=== PATIENT | female | born 1965 | race Caucasian/White ===

== ENCOUNTER 2020-08-17 08:14 | Emergency (ER) | payer MEDICAID ==
[2020-08-17] MEDS ORDERED: Sodium Chloride 0.9% 10 ML Syringe FLUSH PRN (08:23)
[2020-08-17] MEDS ORDERED: Alum Hydroxide/Mag Hydroxide 15 ML, Lidocaine 2% 15 ML PO ONE ×2 (08:24)
[2020-08-17] MEDS ORDERED: Sodium Chloride 0.9% 1,000 ML IV SCH (08:30)
[2020-08-17] MEDS ORDERED: Iopamidol 755 Mg/ML 75 ML Bottle IV ONE (09:25)
--- NOTE | 2020-08-17 10:06 | EDM.PDOC ---
ED HPI GENERAL MEDICAL PROBLEM - General Chief Complaint: Abdominal Pain Stated Complaint: UPPER ABD PAIN Time Seen by Provider: 08/17/20 09:00 Source of Information: Reports: Patient History Limitations: Reports: No Limitations - History of Present Illness INITIAL COMMENTS - FREE TEXT/NARRATIVE: Patient presented to the ED because of epigastric pain which started last night,sharp,09/15. There is no N/V/D or urinary symptoms. There is no fever,chills. Upper Abdomen Pain Score (Numeric/FACES): 5 - Related Data Allergies Allergy/AdvReac Type Severity Reaction Status Date / Time Penicillins Allergy Hives Verified 08/17/20 09:29 Home Meds: Home Meds Losartan [Cozaar] 100 mg PO DAILY 08/17/20 [History] Metoprolol Succinate [Toprol Xl] 50 mg PO DAILY 08/17/20 [History] Omeprazole 20 mg PO DAILY #60 capsule. 08/17/20 [Rx] Sulfamethoxazole/Trimethoprim [Bactrim Ds Tablet] 1 each PO BID #6 tablet 08/17/20 [Rx] atorvaSTATin Calcium [Lipitor] 40 mg PO BEDTIME 08/17/20 [History] ED ROS GENERAL - Review of Systems Review Of Systems: See Below Constitutional: Reports: No Symptoms HEENT: Reports: No Symptoms Respiratory: Reports: No Symptoms Cardiovascular: Reports: No Symptoms Endocrine: Reports: No Symptoms GI/Abdominal: Reports: Abdominal Pain : Reports: No Symptoms Musculoskeletal: Reports: No Symptoms Skin: Reports: No Symptoms Neurological: Reports: No Symptoms Psychiatric: Reports: No Symptoms ED EXAM, GI/ABD - Physical Exam Exam: See Below Exam Limited By: No Limitations General Appearance: Alert, No Apparent Distress Ears: Normal External Exam, Normal Canal Nose: Normal Inspection, Normal Mucosa, No Blood Throat/Mouth: Normal Inspection, Normal Lips, Normal Teeth Head: Atraumatic, Normocephalic Neck: Normal Inspection, Supple, Non-Tender, Full Range of Motion Respiratory/Chest: No Respiratory Distress, Lungs Clear, Normal Breath Sounds, No Accessory Muscle Use, Chest Non-Tender Cardiovascular: Normal Peripheral Pulses, Regular Rate, Rhythm, No Edema, No Gallop, No JVD, No Murmur, No Rub GI/Abdominal Exam: Normal Bowel Sounds, Soft, Other (epigastric tenderness) Course - Vital Signs Text/Narrative:: Lab/CT result was reviewed and discussed with patient NS 1 L bolus GI cocktail po x1 with relief of her pain Last Recorded V/S: Last Vital Signs Temp 37.2 C 08/17/20 10:30 Pulse 87 08/17/20 10:30 Resp 18 08/17/20 10:30 BP 176/111 H 08/17/20 10:30 Pulse Ox 98 08/17/20 10:30 - Orders/Labs/Meds Orders: Active Orders 24 hr Category Date Time Status Saline Lock Insert [OM.PC] Routine Oth 08/17/20 08:23 Ordered Labs: Laboratory Tests 08/17/20 08/17/20 08/17/20 Range/Units 08:35 08:35 08:35 WBC 7.3 (3.0-10.3) x10-3/uL RBC 4.17 (3.60-5.20) x10(6)uL Hgb 13.4 (11.4-15.5) g/dL Hct 40.7 (34.2-48.2) % MCV 97.7 (76.7-100.5) fL MCH 32.2 (23.9-33.9) pg MCHC 33.0 (31.9-34.8) g/dL RDW 12.7 (12.3-16.5) % Plt Count 231 (151-488) x10(3)uL MPV 10.5 (7.1-12.4) fL Neut % (Auto) 73.3 (30.8-76.2) % Lymph % (Auto) 16.6 L (18.4-52.1) % [place] % (Auto) 8.7 (4.4-15.7) % Eos % (Auto) 0.9 (0.6-8.1) % Baso % (Auto) 0.5 (0.2-1.5) % Neut # (Auto) 5.3 (1.5-6.3) x10-3/uL Lymph # (Auto) 1.2 (1.0-4.4) x10-3/uL [place] # (Auto) 0.6 (0.3-1.0) x10-3/uL Eos # (Auto) 0.1 (0.0-0.8) x10-3/uL Baso # (Auto) 0.0 (0.0-0.1) x10-3/uL Sodium 140 (135-145) mmol/L Potassium 3.6 (3.5-5.3) mmol/L Chloride 101 (100-110) mmol/L Carbon Dioxide 28 (21-32) mmol/L BUN 13 (7-18) mg/dL Creatinine 1.0 (0.55-1.02) mg/dL Est Cr Clr Drug Dosing TNP Estimated GFR (MDRD) 57 L (>60) BUN/Creatinine Ratio 13.0 (9-20) Glucose 136 H (80-116) mg/dL Calcium 9.9 (8.6-10.2) mg/dL Total Bilirubin 0.8 (0.1-1.3) mg/dL AST 22 (5-25) IU/L ALT 32 (12-36) U/L Alkaline Phosphatase 85 (56-112) IU/L Total Protein 7.9 (6.0-8.0) g/dL Albumin 3.8 (3.5-5.2) g/dL Globulin 4.1 g/dL Albumin/Globulin Ratio 0.9 Amylase 48 (25-115) U/L Lipase 103 (73-393) U/L Urine Color (YELLOW) Urine Appearance (CLEAR) Urine pH (5.0-6.5) Ur Specific [place] (1.010-1.025) Urine Protein (NEGATIVE) mg/dL Urine Glucose (UA) (NORMAL) mg/dL Urine Ketones (NEGATIVE) mg/dL Urine Occult Blood (NEGATIVE) Urine Nitrite (NEGATIVE) Urine Bilirubin (NEGATIVE) Urine Urobilinogen (NEGATIVE) mg/dL Ur Leukocyte Esterase (NEGATIVE) Urine RBC (0-5) Urine WBC (0-5) Ur Squamous Epith Cells (NS,R,O) Urine Bacteria (NS) 08/17/20 Range/Units 09:25 WBC (3.0-10.3) x10-3/uL RBC (3.60-5.20) x10(6)uL Hgb (11.4-15.5) g/dL Hct (34.2-48.2) % MCV (76.7-100.5) fL MCH (23.9-33.9) pg MCHC (31.9-34.8) g/dL RDW (12.3-16.5) % Plt Count (151-488) x10(3)uL MPV (7.1-12.4) fL Neut % (Auto) (30.8-76.2) % Lymph % (Auto) (18.4-52.1) % [place] % (Auto) (4.4-15.7) % Eos % (Auto) (0.6-8.1) % Baso % (Auto) (0.2-1.5) % Neut # (Auto) (1.5-6.3) x10-3/uL Lymph # (Auto) (1.0-4.4) x10-3/uL [place] # (Auto) (0.3-1.0) x10-3/uL Eos # (Auto) (0.0-0.8) x10-3/uL Baso # (Auto) (0.0-0.1) x10-3/uL Sodium (135-145) mmol/L Potassium (3.5-5.3) mmol/L Chloride (100-110) mmol/L Carbon Dioxide (21-32) mmol/L BUN (7-18) mg/dL Creatinine (0.55-1.02) mg/dL Est Cr Clr Drug Dosing Estimated GFR (MDRD) (>60) BUN/Creatinine Ratio (9-20) Glucose (80-116) mg/dL Calcium (8.6-10.2) mg/dL Total Bilirubin (0.1-1.3) mg/dL AST (5-25) IU/L ALT (12-36) U/L Alkaline Phosphatase (56-112) IU/L Total Protein (6.0-8.0) g/dL Albumin (3.5-5.2) g/dL Globulin g/dL Albumin/Globulin Ratio Amylase (25-115) U/L Lipase (73-393) U/L Urine Color Yellow (YELLOW) Urine Appearance Slightly cloudy (CLEAR) Urine pH 5.0 (5.0-6.5) Ur Specific [place] 1.005 L (1.010-1.025) Urine Protein Negative (NEGATIVE) mg/dL Urine Glucose (UA) Normal (NORMAL) mg/dL Urine Ketones Negative (NEGATIVE) mg/dL Urine Occult Blood Negative (NEGATIVE) Urine Nitrite Negative (NEGATIVE) Urine Bilirubin Negative (NEGATIVE) Urine Urobilinogen Normal (NEGATIVE) mg/dL Ur Leukocyte Esterase Moderate H (NEGATIVE) Urine RBC 0-5 (0-5) Urine WBC 5-10 H (0-5) Ur Squamous Epith Cells Occasional (NS,R,O) Urine Bacteria Few H (NS) Meds: Medications Discontinued Medications Generic Name Dose Route Start Last Admin Trade Name Freq PRN Reason Stop Dose Admin Al Hydroxide/Mg Hydroxide 15 0 ml 08/17/20 08:24 08/17/20 08:46 ml/ Lidocaine HCl 15 ml PO 08/17/20 08:25 30 ml ONETIME ONE Administration Sodium Chloride 1,000 mls @ 999 mls/hr 08/17/20 08:30 08/17/20 08:47 Normal Saline IV 999 mls/hr ASDIRECTED FLORENTINO Administration Iopamidol 75 ml 08/17/20 09:25 08/17/20 09:36 Iopamidol 755 Mg/Ml 75 Ml Bottle IV 08/17/20 09:26 75 ml ONETIME ONE Administration Sodium Chloride 10 ml 08/17/20 08:23 08/17/20 08:47 Sodium Chloride 0.9% 10 Ml Syringe FLUSH 10 ml ASDIRECTED PRN Administration Keep Vein Open Departure - Departure Time of Disposition: 10:15 Disposition: Home, Self-Care 01 Condition: Good Clinical Impression: GERD (gastroesophageal reflux disease), Gastritis, UTI (urinary tract infection) - Discharge Information Prescriptions: Sulfamethoxazole/Trimethoprim [Bactrim Ds Tablet] 1 each PO BID #6 tablet Omeprazole 20 mg PO DAILY #60 capsule.dr Instructions: Gastritis, Adult, [id number], Food Choices for Gastroesophageal Reflux Disease, Adult, [id number] Referrals: Cecilia Denny NP [Primary Care Provider] - Forms: ED Department Discharge Additional Instructions: Please read discharge instructions on GERD/Acid reflux and Gastritis Read the food and beverages that can can aggravate your GERD Take prilosec/omeprazole 20 mg daily for 2-3 months Bactrim DS twice daily for 3 days Follow up as needed Sepsis Event Note (ED) - Evaluation Sepsis Screening Result: No Definite Risk - Focused Exam Vital Signs: Vital Signs Temp Pulse Resp BP Pulse Ox 08/17/20 10:30 37.2 C 87 18 176/111 H 98 08/17/20 09:00 36.9 C 105 H 20 187/110 H 97 - My Orders Last 24 Hours: My Active Orders 08/17/20 08:23 Saline Lock Insert [OM.PC] Routine - Assessment/Plan Last 24 Hours: My Active Orders 08/17/20 08:23 Saline Lock Insert [OM.PC] Routine
--- NOTE | 2020-08-17 10:14 | CT ---
INDICATION: Epigastric and right upper quadrant pain. CT ABDOMEN AND PELVIS WITH CONTRAST: Spiral 3.75 mm axial sections were obtained through the abdomen and pelvis with 75 mL [id number] at 2 mL/sec with sagittal and coronal reconstructions 08/17/20 - no comparisons. Total exam DLP was 475.32 milligray-cm. The lower lung negron and pleural spaces visualized revealed some minimal scarring at the lung base. No definite active infiltrate or effusion. The liver, gallbladder, kidneys (minimal scar noted in the cortex of the lower middle pole of the left kidney laterally and posteriorly), adrenals, spleen, and pancreas appear normal. Common bile duct was normal in caliber. No retroperitoneal mass was seen. The appendix appeared normal in size visualized on coronal images 23 through 31 and axial images 81 through 90. Although the appendix was normal in size, there was some periappendiceal fat stranding of mild degree and of questionable significance. A very early or minimal appendicitis is difficult to entirely exclude. No evidence of free air or bowel obstruction was seen. There appears to be some thickening of the wall of the gastric antrum which could be on the basis of peptic ulcer disease but should be correlated clinically. The urinary bladder wall appears to be minimally thickened which could be on the basis of cystitis but should be correlated clinically. No other organomegaly, mass lesions or free fluid collections were identified in the abdomen or pelvis. IMPRESSION: 1. Normal size of the appendix but with some minimal fat stranding in the area of the appendix but mostly slightly superior to the appendix of questionable significance - raises the question of very early or minimal appendicitis. 2. Minimal renal cortical scar lower pole left kidney. 3. Probable disc disease with some posterior bulging at L4-L5. Mild hypertrophic change is also noted off vertebral bodies in the mid to lower lumbar levels. 4. Question minimal thickening of the wall of the urinary bladder of questionable significance. 5. Mild thickening of the wall of the gastric antrum which could be on the basis of peptic ulcer disease but should be correlated clinically. Report was called to Dr. Feng at 0957 hours 08/17/20. [facility]
== END 2020-08-17 10:30 | disposition home or self-care (01) ==
LOC: FB.ED 08:14
DX: N39.0 Urinary tract infection, site not specified (principal); K29.70 Gastritis, unspecified, without bleeding; K21.9 Gastro-esophageal reflux disease without esophagitis; Z88.0 Allergy status to penicillin; Z79.899 Other long term (current) drug therapy
CPT/HCPCS: 36415; 74177; 80053; 81001; 82150; 83690; 85025; 87086; 99284-25; A9270-GY; J7030; Q9967